=== PATIENT | male | born 1985 | race American Indian/Alaskan Native ===

== ENCOUNTER 2019-05-28 14:18 | Emergency (ER) | payer OTHER ==
[2019-05-28 14:23] VITALS: BP 221/119
--- NOTE | 2019-05-28 14:35 | Emergency Department Report ---
- General Chief Complaint: Upper Respiratory Infection Stated Complaint: FEVER Time Seen by Provider: 05/28/19 14:33 Source: patient Mode of arrival: Ambulatory Limitations: No Limitations - History of Present Illness Initial Comments: Ms. Bustos is a 33-year-old male who presents with fever chest congestion for 1 day. 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 He underwent COVID 19 testing with a mobile unit in place mandated by his employer. Due to low-grade fever he was referred to the emergency department. Testing results should be available to him in 3 to 4 days. No sick contacts but he has been going to the office every day. He did not take his blood pressure medication today. He denies headache visual changes shortness of breath chest pain. He has very mild symptoms of chest congestion. No current cough MD Complaint: fever, cough -: Gradual, days(s) (1) Severity: mild Consistency: constant Improves With: nothing Worsens With: nothing Associated Symptoms: denies other symptoms - Related Data Previous Rx's Medication Instructions Recorded Last Taken Type predniSONE [Deltasone] 20 mg PO TID #12 tab 09/07/13 Unknown Rx Allergies Allergy/AdvReac Type Severity Reaction Status Date / Time No Known Allergies Allergy Unverified 09/07/13 10:18 ED Review of Systems ROS: Stated complaint: FEVER Other details as noted in HPI Comment: All other systems reviewed and negative Constitutional: fever Respiratory: cough ED Past Medical Hx - Past Medical History Previous Medical History?: Yes Hx Hypertension: Yes Hx Diabetes: Yes Additional medical history: Morbid obesity - Surgical History Past Surgical History?: Yes Additional Surgical History: cyst on chest - Social History Smoking Status: Never Smoker - Medications Home Medications: Home Medications Medication Instructions Recorded Confirmed Last Taken Type predniSONE [Deltasone] 20 mg PO TID #12 tab 09/07/13 Unknown Rx ED Physical Exam - General Limitations: No Limitations General appearance: alert, in no apparent distress - Head Head exam: Present: atraumatic, normocephalic - Eye Eye exam: Present: normal appearance - ENT ENT exam: Present: mucous membranes moist - Neck Neck exam: Present: normal inspection, full ROM - Respiratory Respiratory exam: Present: normal lung sounds bilaterally. Absent: respiratory distress, wheezes, rales, rhonchi - Cardiovascular Cardiovascular Exam: Present: regular rate, normal rhythm. Absent: systolic murmur, diastolic murmur, rubs, gallop - GI/Abdominal GI/Abdominal exam: Present: soft, normal bowel sounds. Absent: distended, tenderness, guarding, rebound - Rectal Rectal exam: Present: deferred - Extremities Exam Extremities exam: Present: normal inspection - Back Exam Back exam: Present: normal inspection - Neurological Exam Neurological exam: Present: alert, oriented X3 - Psychiatric Psychiatric exam: Present: normal affect, normal mood - Skin Skin exam: Present: warm, dry, intact, normal color. Absent: rash ED Course Vital Signs 05/28/19 14:21 Temperature 99.2 F Pulse Rate 98 H Respiratory 20 Rate Blood Pressure 221/119 O2 Sat by Pulse 99 Oximetry ED Medical Decision Making - Medical Decision Making Mr. Bustos presents with possible fever. Temperature 99.2 here in emergency department. I have instructed Mr. Bustos to self isolate self quarantine until he receives test results for COVID 19. If testing is positive patient und erstands that he will need to self quarantine for 14 days. Critical care attestation.: If time is entered above; I have spent that time in minutes in the direct care of this critically ill patient, excluding procedure time. ED Disposition Clinical Impression: Fever, Asymptomatic hypertensive urgency Disposition: DC-01 TO HOME OR SELFCARE Is pt being admited?: No Does the pt Need Aspirin: No Condition: Stable Instructions: COVID-19 Additional Instructions: You will have to self isolate self quarantine for the next 3 to 4 days until your COVID 19 test results return. If your test is positive you must self quarantine self isolate for 14 days. Forms: Work/School Release Form(ED)
== END 2019-05-28 15:35 | disposition home or self-care (01) ==
LOC: ED 14:18
DX: R50.9 Fever, unspecified (principal); I16.0 Hypertensive urgency; R09.89 Other specified symptoms and signs involving the circulatory and respiratory systems; R05 Cough; E11.9 Type 2 diabetes mellitus without complications; E66.01 Morbid (severe) obesity due to excess calories; Z68.43 Body mass index [BMI] 50.0-59.9, adult; Z98.890 Other specified postprocedural states; Z79.899 Other long term (current) drug therapy
CPT/HCPCS: 99282

== ENCOUNTER 2019-06-17 18:45 | Emergency (ER) | payer OTHER ==
[2019-06-17] MEDS ORDERED: TETANUS,DIPH,PERTUSS(ACELL) VACCINE 0.5 ML SYRINGE IM ONE (20:28)
[2019-06-17] MEDS ORDERED: LIDOCAINE (1%) 10 MG/1 ML VIAL 20 ML MDV INFILTRATI ONE (20:28)
[2019-06-17] MEDS ORDERED: HYDROcodone/ACETAMINOPHEN 7.5-325MG TAB PO ONE (20:28)
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
[2019-06-18 01:27] VITALS: BP 142/90
== END 2019-06-17 23:30 | disposition home or self-care (01) ==
LOC: ED 18:45
DX: S61.412A Laceration without foreign body of left hand, initial encounter (principal); I10 Essential (primary) hypertension; E11.9 Type 2 diabetes mellitus without complications; E66.01 Morbid (severe) obesity due to excess calories; Z68.44 Body mass index [BMI] 60.0-69.9, adult; Z98.890 Other specified postprocedural states; Z79.899 Other long term (current) drug therapy; Z88.8 Allergy status to other drugs, medicaments and biological substances; V49.49XA Driver injured in collision with other motor vehicles in traffic accident, initial encounter; W22.10XA Striking against or struck by unspecified automobile airbag, initial encounter; Y93.89 Activity, other specified; Y92.410 Unspecified street and highway as the place of occurrence of the external cause; Y99.8 Other external cause status
CPT/HCPCS: 90471; 90715